=== PATIENT | male | born 1950 | race Caucasian/White ===

== ENCOUNTER 2020-04-15 07:35 | Outpatient (CLI) | payer MEDICARE ==
--- NOTE | 2020-04-15 09:55 | CT ---
CT CHEST WITHOUT CONTRAST: DATE: 04/15/2020. PROVIDED CLINICAL HISTORY: Low-dose lung cancer screening, personal history of tobacco abuse. FINDINGS: The heart, pericardium, and great vessels are suboptimally evaluated in the absence of IV contrast ma terial. Vascular calcification including coronary calcium is demonstrated. There is no evidence for thoracic lymph node enlargement with limitations in evaluating for hilar alethea nopathy given lack of IV contrast. The airway appears patent and of normal caliber. The lungs are free of significant opacity. There is a calcified granuloma in the left upper lobe. The osseous structures demonstrate no concerning lytic or blastic lesions. The visualized portions of the upper abdomen demonstrate no significant abnormality. IMPRESSION: 1. Lung RADS category 1 - negative. Annual screening recommended. 2. Vascular calcification including coronary calcium. POS: [facility]
== END 2020-04-15 07:36 | disposition home or self-care (01) ==
LOC: BICCT 07:35
PROVIDERS: ATTEND Family Medicine
DX: Z12.2 Encounter for screening for malignant neoplasm of respiratory organs (principal); F17.210 Nicotine dependence, cigarettes, uncomplicated; I25.10 Atherosclerotic heart disease of native coronary artery without angina pectoris
CPT/HCPCS: G0297

== ENCOUNTER 2021-08-04 13:09 | Outpatient (CLI) | payer MEDICARE | END 2021-08-04 13:10 | disposition home or self-care (01) | LOC: BICCT 13:09 | PROVIDERS: ATTEND Family Medicine | DX: Z12.2 Encounter for screening for malignant neoplasm of respiratory organs (principal); F17.210 Nicotine dependence, cigarettes, uncomplicated; J44.9 Chronic obstructive pulmonary disease, unspecified | CPT/HCPCS: 71271 ==

== ENCOUNTER 2021-08-04 13:12 | Outpatient (CLI) | payer MEDICARE | END 2021-08-04 13:13 | disposition home or self-care (01) | LOC: BICRAD 13:12 | PROVIDERS: ATTEND Internal Medicine Rheumatology | DX: M54.50 Low back pain, unspecified (principal); M47.816 Spondylosis without myelopathy or radiculopathy, lumbar region; M43.17 Spondylolisthesis, lumbosacral region | CPT/HCPCS: 72110 ==

== ENCOUNTER 2021-10-12 07:30 | Outpatient (CLI) | payer MEDICARE | END 2021-10-12 07:31 | disposition home or self-care (01) | LOC: SCSMRI 07:30 | PROVIDERS: ATTEND Family Medicine | DX: M54.40 Lumbago with sciatica, unspecified side (principal); M47.816 Spondylosis without myelopathy or radiculopathy, lumbar region | CPT/HCPCS: 72148 ==

== ENCOUNTER 2022-07-15 06:24 | Emergency (ER) | payer MEDICARE ==
[2022-07-15 07:12] LABS: #Eosinphils 0.2 thou/uL (0.0-0.7); #Lymphocytes 1.8 thou/uL (1.20-3.40); #Monocytes 0.9 thou/uL (0.11-0.59); #Neutrophils 9.6 thou/uL (1.40-6.50); %Basophils 0.4 % (0.0-1.0); %Eosinophils 1.6 % (0.0-10.0); %Lymphocytes 14.2 % (21.0-51.0); %Monocytes 7.3 % (0.0-10.0); %Neutrophils 76.6 % (42.0-75.0); Hemoglobin 15.4 g/dL (14.0-18.0); Mean Corpuscular Hemoglobin 32.1 pg (27.0-31.0); Mean Corpuscular Volume 97.3 fL (78.0-98.0); Mean Platelet Volume 7.8 fL (7.4-10.4); Platelet Count 255 thou/uL (130-400); RBC Distribution Width 12.2 % (11.5-14.5); White Blood Cell (WBC) Count 12.5 thou/uL (4.8-10.8)
[2022-07-15 07:30] LABS: ALT (SGPT) 17 U/L (8-55); AST (SGOT) 21 U/L (5-34); Albumin 3.8 g/dL (3.4-4.8); Alkaline Phosphatase 50 U/L (40-110); Anion Gap 12 mmol/L (10-20); BUN (Urea Nitrogen) 21 mg/dL (8.4-25.7); Bilirubin, Total 0.3 mg/dL (0.2-1.2); Calc. Creatinine Clearance 0 mL/min (70-130); Calcium 9.4 mg/dL (7.8-10.44); Carbon Dioxide 27 mmol/L (23-31); Chloride 104 mmol/L (98-107); Estimated GFR 92; Globulin 3.3 g/dL (2.4-3.5); Glucose 148 mg/dL (83-110); Potassium 3.8 mmol/L (3.5-5.1); Protein, Total 7.1 g/dL (5.8-8.1); Sodium 139 mmol/L (136-145)
[2022-07-15] MEDS ORDERED: Dexamethasone 10 MG/ML VIAL ONE (07:43)
[2022-07-15] MEDS ORDERED: Meclizine HCl 25 MG TAB ONE (07:44)
== END 2022-07-15 08:47 | disposition home or self-care (01) ==
LOC: ERS 06:24
DX: E86.0 Dehydration (principal); E11.9 Type 2 diabetes mellitus without complications; E78.5 Hyperlipidemia, unspecified; I10 Essential (primary) hypertension; F17.210 Nicotine dependence, cigarettes, uncomplicated; Z79.84 Long term (current) use of oral hypoglycemic drugs
CPT/HCPCS: 36415; 70450; 71045; 80053; 82550; 84484; 85025; 93005; 96361; 96374; J1100

== ENCOUNTER 2022-11-05 13:43 | Outpatient (CLI) | payer MEDICARE | END 2022-11-05 13:44 | disposition home or self-care (01) | LOC: BICCT 13:43 | PROVIDERS: ATTEND Family Medicine | DX: Z12.2 Encounter for screening for malignant neoplasm of respiratory organs (principal); F17.210 Nicotine dependence, cigarettes, uncomplicated | CPT/HCPCS: 71271 ==

== ENCOUNTER 2023-05-30 08:54 | Outpatient (CLI) | payer MEDICARE ==
[2023-05-30] MEDS ORDERED: Iopamidol 370 76% 100 ML VIAL ONE (12:40)
== END 2023-05-30 08:55 | disposition home or self-care (01) ==
LOC: BICCT 08:54
PROVIDERS: ATTEND Family Medicine
DX: R63.4 Abnormal weight loss (principal)
CPT/HCPCS: 74178; 82565

== ENCOUNTER 2023-07-29 08:45 | Outpatient (CLI) | payer MEDICARE | END 2023-07-29 08:46 | disposition home or self-care (01) | LOC: SCSMRI 08:45 | PROVIDERS: ATTEND Family Medicine | DX: M62.81 Muscle weakness (generalized) (principal) | CPT/HCPCS: 70553 ==

== ENCOUNTER 2023-08-07 11:04 | Outpatient (CLI) | payer MEDICARE | END 2023-08-07 11:05 | disposition home or self-care (01) | LOC: SCSMRI 11:04 | PROVIDERS: ATTEND Family Medicine | DX: M12.811 Other specific arthropathies, not elsewhere classified, right shoulder (principal); M47.22 Other spondylosis with radiculopathy, cervical region; M48.02 Spinal stenosis, cervical region; M19.011 Primary osteoarthritis, right shoulder; M25.711 Osteophyte, right shoulder; M67.813 Other specified disorders of tendon, right shoulder; M75.81 Other shoulder lesions, right shoulder; S43.431A Superior glenoid labrum lesion of right shoulder, initial encounter; S43.081A Other subluxation of right shoulder joint, initial encounter | CPT/HCPCS: 72141 ==

== ENCOUNTER 2023-08-28 09:56 | Outpatient (CLI) | payer MEDICARE ==
[2023-08-28 11:05] LABS: Hematocrit 41.9 % (38.8-50.0); Hemoglobin 14.2 g/dL (13.5-17.5); Mean Corpuscular HGB CONC 33.9 g/dL (32.0-36.0); Mean Corpuscular Volume 94.4 fl (81.2-95.1); Mean Platelet Volume 10.4 fl (7.4-10.4); Platelet Count 277 10x3/uL (150-450); RBC Distribution Width 13.3 % (11.5-14.5); Red Blood Cell (RBC) Count 4.44 10x6/uL (4.32-5.72); White Blood Cell (WBC) Count 11.1 10x3/uL (3.5-10.5)
[2023-08-28 11:42] LABS: Anion Gap 14 mmol/L (10-20); BUN (Urea Nitrogen) 19 mg/dL (8.4-25.7); Calc. Creatinine Clearance 0 mL/min (70-130); Calcium 9.1 mg/dL (7.8-10.44); Carbon Dioxide 25 mmol/L (23-31); Chloride 103 mmol/L (98-107); Estimated GFR 91; Glucose 153 mg/dL (83-110); Potassium 3.7 mmol/L (3.5-5.1); Sodium 138 mmol/L (136-145)
== END 2023-08-28 09:57 | disposition home or self-care (01) ==
LOC: LABBT 09:56
PROVIDERS: ATTEND Neurological Surgery
DX: Z01.818 Encounter for other preprocedural examination (principal)
CPT/HCPCS: 80048; 85027; 93005; 93010

== ENCOUNTER 2023-09-04 06:29 | Day surgery (SDC) | payer MEDICARE ==
[2023-08-28 10:41] VITALS: BMI 26.6
[2023-09-04] MEDS ORDERED: Thrombin 5000 UNITS/5 ML VIAL ONE (06:42)
[2023-09-04] MEDS ORDERED: EPINEPHrine 1 MG/ML VIAL ONE (06:46)
[2023-09-04] MEDS ORDERED: Vancomycin HCl 500 MG VIAL ONE (06:46)
[2023-09-04] MEDS ORDERED: Bupivacaine PF 0.5% 30 ML VIAL ONE (06:46)
[2023-09-04] MEDS ORDERED: fentaNYL PF 100 MCG/2 ML SYRINGE ONE ×2 (06:57→08:55)
[2023-09-04] MEDS ORDERED: Rocuronium Bromide 10 MG/ML (10ML VIAL) ONE ×2 (06:57→08:10)
[2023-09-04] MEDS ORDERED: Dexmedetomidine 200 MCG/2 ML VIAL ONE (06:57)
[2023-09-04] MEDS ORDERED: PROPOFOL 20 ML ONE (06:57)
[2023-09-04] MEDS ORDERED: Ondansetron PF 4 MG/2 ML Vial ONE ×2 (06:57→08:10)
[2023-09-04] MEDS ORDERED: Dexamethasone 20 MG/5 ML VIAL ONE ×2 (06:57→08:10)
[2023-09-04] MEDS ORDERED: Sodium Chloride 0.9% 100 ML ONE ×2 (07:35→11:38)
[2023-09-04] MEDS ORDERED: CEFAZOLIN 2 GM VIAL ONE ×2 (07:35→11:38)
[2023-09-04] MEDS ORDERED: ePHEDrine Sulfate 50 MG/10 ML VIAL ONE ×2 (08:10→09:29)
[2023-09-04] MEDS ORDERED: PROPOFOL 200 MG/20 ML VIAL ONE (08:10)
[2023-09-04] MEDS ORDERED: NEOSTIGMINE 3 MG/3 ML SYR 3 MG/3 ML SYRINGE ONE ×2 (08:10→09:12)
[2023-09-04] MEDS ORDERED: PHENYLEPHRINE-NS 100 MCG/ML 10 ML SYRINGE ONE ×2 (08:10→08:23)
[2023-09-04] MEDS ORDERED: Glycopyrrolate 0.2 MG/ML 5 ML SYRINGE ONE ×2 (08:10→09:12)
[2023-09-04] MEDS ORDERED: Ketorolac Tromethamine 30 MG/ML VIAL ONE (09:45)
[2023-09-04] MEDS ORDERED: fentaNYL 50 mcg/mL 1 mL Vial ONE (09:46)
[2023-09-04] MEDS ORDERED: Tamsulosin HCl 0.4 MG CAP ONE (10:30)
[2023-09-04] MEDS ORDERED: HYDROcodone/Acetaminophen 5/325 mg Tablet ONE (10:50)
== END 2023-09-04 13:15 | disposition home or self-care (01) ==
LOC: SDC 06:29
PROVIDERS: ATTEND Neurological Surgery
PROC: 0RG20A0 Fusion of 2 or more Cervical Vertebral Joints with Interbody Fusion Device, Anterior Approach, Anterior Column, Open Approach (ICD-10-PCS; principal; 2023-09-04)
PROC: 0RG2070 Fusion of 2 or more Cervical Vertebral Joints with Autologous Tissue Substitute, Anterior Approach, Anterior Column, Open Approach (ICD-10-PCS; 2023-09-04)
DX: M54.12 Radiculopathy, cervical region (principal); M48.02 Spinal stenosis, cervical region; I10 Essential (primary) hypertension; E11.9 Type 2 diabetes mellitus without complications; Z79.899 Other long term (current) drug therapy; Z79.84 Long term (current) use of oral hypoglycemic drugs; Z88.1 Allergy status to other antibiotic agents
CPT/HCPCS: 20931; 20936; 22551; 22552; 22845; 22853 ×2; C1713 ×4; C1889 ×2; J3010; J0171; J1100; J1885; J2405; J2704; J3370; J3490; S0020

== ENCOUNTER 2023-11-07 13:28 | Outpatient (CLI) | payer MEDICARE | END 2023-11-07 13:29 | disposition home or self-care (01) | LOC: SCSMRI 13:28 | PROVIDERS: ATTEND Neurological Surgery | DX: M54.50 Low back pain, unspecified (principal); M47.816 Spondylosis without myelopathy or radiculopathy, lumbar region; M51.26 Other intervertebral disc displacement, lumbar region; M48.061 Spinal stenosis, lumbar region without neurogenic claudication; M51.36 Other intervertebral disc degeneration, lumbar region; M89.38 Hypertrophy of bone, other site; Z98.890 Other specified postprocedural states | CPT/HCPCS: 72158; 82565 ==